=== PATIENT | female | born 1955 | race Caucasian/White ===

== ENCOUNTER 2018-08-02 16:32 | Inpatient (IN) | payer OTHER ==
[2018-08-02 17:46] LABS: PLATELET COUNT 296 10^3/uL (150-400)
[2018-08-04] MEDS ORDERED: TRANEXAMIC ACID 1,000 MG in NS 100 ML IV ONE (08:29)
[2018-08-04] MEDS ORDERED: PROPOFOL/EMULSION 500 MG/50 ML BOTTLE IV ONE (09:16)
[2018-08-04] MEDS ORDERED: THROMBIN (BOVINE) 20,000 UNIT VIAL TP ONE (09:19)
[2018-08-04] MEDS ORDERED: BUPIVACAINE 0.25% 30 ML SDV ONE (09:19)
[2018-08-04] MEDS ORDERED: EPINEPHrine 1 MG/ML INJ ONE (09:19)
[2018-08-04] MEDS ORDERED: CHLORHEXIDINE GLUC HIBICLENS 118 ML BTL TP ONE (09:19)
[2018-08-04] MEDS ORDERED: BACITRACIN 50,000 UNITS/10 ML SYR IRR ONE (09:20)
[2018-08-04] MEDS ORDERED: ACETAMINOPHEN 500 MG TAB PO ONE (09:25)
[2018-08-04] MEDS ORDERED: morphINE SR 15 MG TAB PO ONE (09:25)
[2018-08-04] MEDS ORDERED: morphINE PF 0.2 MG in SYRINGE INTRATHECAL 1 SYR IT ONE (09:25)
[2018-08-04] MEDS ORDERED: GABAPENTIN 300 MG CAP PO ONE (09:25)
[2018-08-04] MEDS ORDERED: ceFAZolin 2 GM/DEXTROSE 100 ML IV ONE (09:25)
[2018-08-04] MEDS ORDERED: ROCURONIUM 50 MG/5 ML VIAL ONE (09:31)
[2018-08-04] MEDS ORDERED: LIDOCAINE 2% 5 ML SDV ONE ×2 (09:31→12:01)
--- NOTE | 2018-08-04 09:40 | PDHPUP ---
History & Physical Update H&P update statement: This history and physical update is based on an assessment of the patient which was completed after admission or registration (within 24 hours), but prior to the surgery/procedure. H&P update: H&P reviewed & patient examined, no change in patient's condition since H&P completed (Consents signed and site marked. All questions answered.)
[2018-08-04] MEDS ORDERED: LR 1,000 ML IV ONE (10:10)
[2018-08-04] MEDS ORDERED: DEXMEDETOMIDINE HCL 200 MCG/2 ML VIAL IV ONE (10:15)
[2018-08-04] MEDS ORDERED: MIDAZOLAM 2 MG/2 ML VIAL ONE (10:16)
[2018-08-04] MEDS ORDERED: fentaNYL 100 MCG/2 ML INJ ONE ×2 (10:21→15:04)
[2018-08-04] MEDS ORDERED: PROPOFOL 200 MG/20 ML VIAL ONE (10:22)
[2018-08-04] MEDS ORDERED: ALBUTEROL 60 PUFFS/8 GM MDI IH PRN (10:33)
[2018-08-04] MEDS ORDERED: LACTULOSE 20 GM/30 ML UDCUP PO PRN (10:41)
[2018-08-04] MEDS ORDERED: POLYETHYLENE GLYCOL 3350 17 GM PKT PO PRN (10:41)
[2018-08-04] MEDS ORDERED: ONDANSETRON DISINTEGRATING 4 MG TAB PO PRN (10:41)
[2018-08-04] MEDS ORDERED: ONDANSETRON 4 MG/2 ML VIAL IVP PRN ×3 (10:41→14:22)
[2018-08-04] MEDS ORDERED: MAGNESIUM HYDROXIDE 30 ML UDCUP PO PRN (10:41)
[2018-08-04] MEDS ORDERED: BISACODYL 10 MG SUPP PR PRN (10:41)
[2018-08-04] MEDS ORDERED: NS 1,000 ML IV SCH (10:45)
[2018-08-04] MEDS ORDERED: KETAMINE 200 MG/20 ML VIAL ONE (11:07)
--- NOTE | 2018-08-04 11:08 | PDANEPAE ---
ANE Past Medical History - Cardiovascular History Hx Hypertension: Yes Hx Arrhythmias: No Hx Chest Pain: No Hx Coronary Artery / Peripheral Vascular Disease: Yes Hx CHF / Valvular Disease: No Hx Palpitations: No Cardiovascular History Comment: CAD. STENT PLACED 2013. WELLNESS PROGRAM ADMINISTRATOR . MURMUR - Pulmonary History Hx COPD: No Hx Asthma/Reactive Airway Disease: Yes Hx Recent Upper Respiratory Infection: No Hx Oxygen in Use at Home: No Hx Sleep Apnea: Yes Sleep Apnea Screening Result - Last Documented: Positive Pulmonary History Comment: KATRINA USES MOUTHPIECE - Neurologic History Hx Cerebrovascular Accident: No Hx Seizures: No Hx Dementia: No - Endocrine History Hx Diabetes: No Endocrine History Comment: hypothyroidism. hashimotos - Renal History Hx Renal Disorders: No - Liver History Hx Hepatic Disorders: No - Neurological & Psychiatric Hx Hx Neurological and Psychiatric Disorders: Yes Neurological / Psychiatric History Comment: anxiety. depression. recent loss of a loved one - Cancer History Hx Cancer: No - Congenital Disorder History Hx Congenital Disorders: No - GI History Hx Gastrointestinal Disorders: Yes Gastrointestinal History Comment: hx of reflux- diet controlled currently - Other Health History Other Health History: 2 MISSING TEETH. gluten causes rashes. wears glasses. chronic pain pt - Chronic Pain History Chronic Pain: Yes (back, neck spine) - Surgical History Prior Surgeries: RT CATARACT. LUMBAR FUSION L4-6 2009. CERVICAL FUSION X2 2013 &2010. ABLATIONS LUMBAR/SIVAN. TONSILLECTOMY. RT BUNIONECTOMY WITH POST REMVL HARDWARE. RT CARPAL TUNNEL RELEASE ANE Review of Systems Review of Systems: - Exercise capacity METS (RN): 3 METS ANE Patient History - Allergies Allergies/Adverse Reactions: adhesive tape Allergy (Verified 08/04/18 09:34) itch and break out gluten Allergy (Verified 08/04/18 09:34) - Home Medications Home Medications: Albuterol [Proventil Inhaler HFA (*)] 1 - 2 puffs IH Q4H PRN 07/27/17 [Last Taken 08/03/18] Amphet Asp and D/Amphet [Adderall 10 MG (*)] 10 mg PO BID@09,16 07/27/17 [Last Taken 08/03/18] Aspirin [Aspirin 325 mg (*)] 325 mg PO HS 07/27/17 [Last Taken 08/01/18] Fluticasone/Salmeter 500/50Mcg [Advair 500/50 (*)] 1 puffs IH BID 07/27/17 [ Last Taken 08/03/18] Furosemide [Lasix 20 MG (*)] 10 mg PO DAILY 07/27/17 [Last Taken 08/03/18] Levothyroxine [Synthroid 112 mcg (*)] 112 mcg PO DAILY06 07/27/17 [Last Taken 06:00] Liothyronine Sodium [Cytomel 5 mcg (*)] 5 mcg PO DAILY 07/27/17 [Last Taken 06:00] Lisinopril [Zestril 10 mg (*)] 10 mg PO DAILY 07/27/17 [Last Taken 08/03/18 06: 00] MILNACIPRAN HCL [Savella 100 mg] 100 mg PO BID 07/27/17 [Last Taken 08/03/18 16: 00] Montelukast Sodium [Singulair 10 mg (*)] 10 mg PO DAILY@1600 07/27/17 [Last Taken 08/03/18] Temazepam [Restoril] 30 mg PO HS 07/27/17 [Last Taken 08/03/18 19:15] amLODIPine BESYLATE [Norvasc 5 mg (*)] 5 mg PO DAILY 07/27/17 [Last Taken 06:00] traZODone [traZODone 150MG (*)] 300 mg PO HS 07/27/17 [Last Taken 08/03/18 19:15 ] Docusate Sodium [Colace 100 MG (*)] 200 mg PO HS 07/20/18 [Last Taken 08/03/18] Herbals/Supplements -Info Only 1 ea PO DAILY 07/20/18 [Last Taken 08/01/18] Multivitamins [Multivitamin (*)] 1 each PO DAILY 07/20/18 [Last Taken 08/01/18] - NPO status NPO Since - Liquids (Date): 08/04/18 NPO Since - Liquids (Time): 07:00 NPO Since - Solids (Date): 08/03/18 NPO Since - Solids (Time): 19:00 - Smoking Hx Smoking Status: Former smoker - Family Anes Hx Family Hx Anesthesia Complications: none ANE Labs/Vital Signs - Labs Result Diagrams: 08/02/18 17:14 08/02/18 17:14 - Vital Signs Blood Pressure: 122/79 Heart Rate: 79 Respiratory Rate: 16 O2 Sat (%): 94 Height: 167.64 cm Weight: 75.75 kg ANE Physical Exam - Airway Neck exam: FROM Mallampati Score: Class 1 Mouth exam: normal dental/mouth exam - Pulmonary Pulmonary: no respiratory distress, no rales or rhonchi, clear to auscultation - Cardiovascular Cardiovascular: regular rate and rhythym, no murmur, rub, or gallop - ASA Status ASA Status: III ANE Anesthesia Plan Anesthesia Plan: general endotracheal anesthesia
[2018-08-04] MEDS ORDERED: MAGNESIUM SULFATE 1 GM/2 ML VIAL ONE (11:15)
[2018-08-04] MEDS ORDERED: DIAZEPAM 5 MG/ML 1 ML SYR ONE ×2 (11:16→14:25)
[2018-08-04] MEDS ORDERED: DEXAMETHASONE 4 MG/ML VIAL IVP PRN ×2 (11:31→14:22)
[2018-08-04] MEDS ORDERED: LR 500 ML IV PRN ×2 (11:31→14:22)
[2018-08-04] MEDS ORDERED: DIAZEPAM 5 MG/ML 1 ML SYR IVP PRN ×2 (11:31→14:22)
[2018-08-04] MEDS ORDERED: NALOXONE HCL 0.4 MG/ML INJ IVP PRN ×2 (11:31→14:22)
[2018-08-04] MEDS ORDERED: fentaNYL 100 MCG/2 ML INJ IVP PRN ×2 (11:31→14:22)
[2018-08-04] MEDS ORDERED: ePHEDrine SULFATE 25 MG/5 ML SYR ONE (12:01)
[2018-08-04] MEDS ORDERED: PHENYLEPHRINE HCL 100 MCG/ML SYR ONE (12:01)
[2018-08-04] MEDS ORDERED: HYDROmorphONE/DILAUDID 2 MG/ML INJ ONE (13:51)
[2018-08-04] MEDS: HYDROmorphONE/DILAUDID 2 MG/ML INJ IVP PRN ×2 (13:53→14:03)
[2018-08-04] MEDS ORDERED: ceFAZolin 2 GM/DEXTROSE 100 ML IV SCH (14:00)
--- NOTE | 2018-08-04 14:00 | POSTOPPROG ---
Post Op Note Date of Operation: 08/04/18 Surgeon: Ron Morgan Flatwork Presser: VICTORIANO Boyle PAC Anesthesia: GET(General Endotracheal) Pre-op Diagnosis: Lumbar stenosis Post-op Diagnosis: Lumbar stenosis Indication: Lumbar stenosis Procedure: hardware exploration and removal, L2/3 TLIF with L2-L4 PSF Inf/Abcess present in the surg proc area at time of surgery?: No EBL: 50-100 Drains: Chapin ANGLIN Addendum - Addendum .: S: low back discomfort, denies any new leg pain O: NAD A&OX3 MAEx4 5/ incision c/d/i A/P 63y/o female s/p hardware exploration and removal, L2/3 TLIF with L2-L4 PSF -Optimize pain management -PT/OT -NEDRA drain x1 -Post op xrays pending -DVT prophx: TEDs, SCDs, Lovenox okay POD1 -Please notify NS with any change in neuro/motor exam
--- NOTE | 2018-08-04 14:30 | POSTANESTH ---
Post Anesthetic Evaluation Cardiovascular Status: Normal, Stable, Similar to Pre-Op Cond Respiratory Status: Normal, Stable, Similar to Pre-op Cond. Level of Consciousness/Mental Status: Mildly Sleepy, Arousable Pain Control: Adequate, Prn Tx Ordered Nausea/Vomiting Control: Adequate, Prn Tx Ordered Complications Possibly Related to Anesthesia: None Noted
--- NOTE | 2018-08-04 14:34 | GOP ---
[f rep st] OPERATIVE REPORT DATE OF OPERATION: 08/04/2018 SURGEON: Ron Morgan MD [place] ORD[facility]ARY: Britta Boyle PA-C. ANESTHESIA: General. PREOPERATIVE DIAGNOSIS: 1. Adjacent level stenosis L2, L3 with history of prior lumbar fusion L3 through L5. 2. Lower extremity radiculopathy. 3. Lower extremity weakness. 4. Low back pain. 5. Treatment refractory to nonoperative intervention. POSTOPERATIVE DIAGNOSIS: 1. Adjacent level stenosis L2, L3 with history of prior lumbar fusion L3 through L5. 2. Lower extremity radiculopathy. 3. Lower extremity weakness. 4. Low back pain. 5. Treatment refractory to nonoperative intervention. PROCEDURE PERFORMED: 1. Posterior arthrodesis with approach to L2, L3, L4, and L5. 2. Exploration of lumbar hardware L3 through L5 with subsequent removal of segmental hardware from the Alphatec system. 3. Posterolateral fusion with bilateral pedicle screw placement L2, L3, and L4 from Yandex Solera 4.75 system. 4. Decompressive laminectomy L2, L3 with left-sided aggressive facetectomy and transforaminal lumbar interbody fusion with a 7 x 26 mm titanium coated PEEK cage filled with morselized autograft and allograft. 5. Posterolateral fusion on the right between L2 and L3 with morselized autograft and allograft. 6. Use of intraoperative 3D Stealth navigation. 7. Use of intraoperative fluoroscopy, less than 1 hour physician time. 8. Use of neuromonitoring. 9. Use of the operating microscope. 10. Injection of preservative-free intrathecal narcotics. FINDINGS: per imaging SPECIMENS: None. ESTIMATED BLOOD LOSS: 150 mL. INDICATIONS: The patient is a very pleasant 63-year-old woman who presented to our office with low back pain and worsening lower extremity radiculopathy. She had evidence of severe adjacent level breakdown at L2-L3 with a history of prior fusion at L3 through L5. After discussion of risks, benefits, and alternatives, and after failing nonoperative intervention, we decided to proceed forth with the surgery as described above. DESCRIPTION OF PROCEDURE: Patient was brought to the operating theater and underwent general endotracheal anesthesia without complications. She had Venodynes, SUSY hose, and the appropriate lines placed by Anesthesia. She was flipped prone onto the Chapin table and all bony prominences inspected and padded. The previous lumbar incision was identified and marked more cranially. This area was prepped and draped in usual sterile surgical fashion. A time- out was completed per protocol, and the patient received antibiotics within 1 hour of incision. The incision was infiltrated with Marcaine with epinephrine. The incision was taken down with a scalpel blade, and using monopolar, taken down in midline through the lumbodorsal fascia and a subperiosteal dissection was carried out at L2. We then traveled out laterally at the L3, L4, and L5 levels to avoid the previous midline laminectomy defect. We identified the prior hardware at L3 , L4, and L5. She had a large amount of bony growth over the hardware and the crosslink. We removed the bone, tissue, and removed the cap screws from L3 through L5, as well as bilateral rods, as well as the crosslink. We explored this hardware using the distractor, and she had no motion on further exploration. We replaced the bilateral L3 and L4 screws with 6.5 x 40 mm screws bilaterally in L3 and L4 from Medtronic Solera 4.75 system. We attached our 3D Stealth navigation clamp to the spinous process of L2 and completed a 3D Stealth navigation spin. Using 3D Stealth navigation, we placed the airplane pilot chief holes for the bilateral pedicle screws in L2. The holes were manually palpated with no evidence of any cortical breaches. We then tapped and placed 6.5 x 50 mm screws bilaterally in L2, also from the Medtronic Solera 4.75 system. Another 3D Stealth navigation spin demonstrated good placement of the hardware. At this point, the microscope was brought into field to assist with microscopic dissection to maintain illumination and magnification. Using a combination of bur tip on the drill bit, Kerrison punches, and Leksell rongeur, we completed a decompressive laminectomy with a left-sided aggressive facetectomy L2-L3. We distracted the interspace on the left side and completed a left-sided L2-3 diskectomy. We prepared the cartilaginous endplates and measured the interbody space. We placed a 7 x 26 mm titanium coated PEEK cage filled with morselized autograft and allograft anteriorly and towards the midline. We packed additional morcellized autograft into the disk space for interbody fusion. We let down the distraction and decorticated the bone on the right side between L2 and L3. We placed 2 lordotic rods into the heads of the screws between L2 and L4 and secured them down with cap screws which were then tightened per financial aid officer's setting. We irrigated the wound copiously with bacitracin irrigation. We placed morselized autograft and allograft in the right side between L2-3 for posterolateral fusion. We injected preservative-free intrathecal narcotics and left a drain in the subfascial space. The wound was then closed in multiple layers including Vicryl sutures in the deep layers and Dermabond for the skin. The patient's wounds were dressed sterilely. She was then awakened, extubated, and taken to the recovery room in stable condition. There were no complications and no noted changes on neuromonitoring throughout the procedure. COMPLICATIONS: None. /[id number]/MODL MTDD
--- NOTE | 2018-08-04 14:38 | PDMN ---
Medical Necessity Medical necessity: MCG: S820 lumbar fusion: 2 days [facility] INPT only OP: hardware exploration and removal, L2/3 TLIF with L2-L4 PSF PER [facility] [id number] APPROVED FOR INPT
[2018-08-04] MEDS: ACETAMINOPHEN 500 MG TAB PO SCH ×2 (15:15→21:44)
[2018-08-04] MEDS: ADDERALL 10 MG TAB PO SCH (16:21)
[2018-08-04] MEDS: ceFAZolin 2 GM/DEXTROSE 100 ML IV SCH (17:08)
[2018-08-04] MEDS: MONTELUKAST SODIUM 10 MG TAB PO SCH (17:08)
[2018-08-04] MEDS: oxyCODONE IR 5 MG TAB PO PRN ×3 (17:08→21:45)
[2018-08-04] MEDS: METHOCARBAMOL 750 MG TAB PO PRN (18:27)
[2018-08-04] MEDS: DOCUSATE SODIUM 100 MG CAP PO SCH (21:44)
[2018-08-04] MEDS: SENNOSIDES/DOCUSATE SODIUM TAB PO SCH (21:46)
[2018-08-04] MEDS: TEMAZEPAM 15 MG CAP PO SCH (21:46)
[2018-08-04] MEDS: FAMOTIDINE 20 MG TAB PO SCH (21:46)
[2018-08-04] MEDS: FLUTICASONE/SALMETER 500/50MCG DISKUS IH SCH (23:20)
[2018-08-05] MEDS: diphenhydrAMINE 25 MG CAP PO PRN ×3 (00:48→08:22)
[2018-08-05] MEDS: ceFAZolin 2 GM/DEXTROSE 100 ML IV SCH (00:49)
[2018-08-05] MEDS: Milnacipran Hcl [Savella 100 Mg] PO SCH ×3 (01:03→21:09)
[2018-08-05] MEDS: METHOCARBAMOL 750 MG TAB PO PRN ×2 (04:33→20:05)
[2018-08-05] MEDS: oxyCODONE IR 5 MG TAB PO PRN ×4 (04:33→20:05)
[2018-08-05] MEDS: ACETAMINOPHEN 500 MG TAB PO SCH ×3 (06:23→21:45)
[2018-08-05] MEDS: LEVOTHYROXINE 112 MCG TAB PO SCH (06:23)
--- NOTE | 2018-08-05 07:28 | NEUSURGPN ---
Date of Surgery: 08/04/18 Post Op Day: 1 Assessment/Plan: 63y/o female s/p hardware exploration and removal, L2/3 TLIF with L2-L4 PSF -Optimize pain management -PT/OT -NEDRA drain x1 (310 output since surgery) -Wear brace when out of bed -Post op xrays pending -DVT prophx: TEDs, SCDs, Lovenox okay POD1 -Please notify NS with any change in neuro/motor exam Discussed with Dr. Morgan. Subjective: Itchy all over. No lower extremity pain, numbness, tingling. Objective: Awake. Alert. PERRL. EOMI Speech fluent Muscle strength full at 5/5 Catheter Insertion Date: 08/04/18 - Physician Discussed Patient with : Cathy Neurosurgery Physical Exam - Vitals, I&O, Labs I and O 08/04/18 08/05/18 08/06/18 05:59 05:59 05:59 Intake Total 5505 Output Total 3810 Balance 1695 Weight 75.75 kg Intake: Oral (ml) 3100 IV Intake (ml) 2100 IV Infused (ml) 305 ceFAZolin 2 GM/DEXTROSE 305 100 ml @ 200 mls/hr IV Q8H PIOT[facility] Rx#:[id number] Output: Urine (ml) 3300 Catheter 3300 Estimated Blood Loss (ml) 200 NEDRA Drain Output (ml) 310 #1 Posterior Back Chapin 310 Woody Other: Intake Quantity Yes Sufficient Vital Signs Temp Pulse Resp BP Pulse Ox 36.9 C 75 13 94/56 L 98 08/05/18 03:22 08/05/18 03:22 08/05/18 03:22 08/05/18 03:22 08/05/18 03:22 Laboratory Results 08/02/18 17:14 08/02/18 17:14 ICD10 Worksheet Patient Problems: Problems Problem Status Onset Lumbar spondylosis Acute - ICD10 Problem Qualifiers (1) Lumbar spondylosis
[2018-08-05] MEDS: FAMOTIDINE 20 MG TAB PO SCH ×2 (08:21→19:58)
[2018-08-05] MEDS: ENOXAPARIN 40 MG/0.4 ML SYR SC SCH (08:21)
[2018-08-05] MEDS: ADDERALL 10 MG TAB PO SCH ×2 (08:21→16:46)
[2018-08-05] MEDS: FUROSEMIDE 20 MG TAB PO SCH (08:22)
[2018-08-05] MEDS: LIOTHYRONINE SODIUM 5 MCG TAB PO SCH (08:22)
[2018-08-05] MEDS: LISINOPRIL 10 MG TAB PO SCH (08:26)
[2018-08-05] MEDS: amLODIPine BESYLATE 5 MG TAB PO SCH (08:26)
[2018-08-05] MEDS: FLUTICASONE/SALMETER 500/50MCG DISKUS IH SCH ×2 (08:27→21:03)
[2018-08-05] MEDS: SENNOSIDES/DOCUSATE SODIUM TAB PO SCH ×2 (08:28→19:58)
[2018-08-05] MEDS: MULTIVITAMINS 1 EACH TAB PO SCH (08:28)
[2018-08-05] MEDS ORDERED: Herbals/Supplements -Info Only PO SCH (09:00)
[2018-08-05] MEDS ORDERED: hydrOXYzine HCL 25 MG TAB PO PRN (11:21)
--- NOTE | 2018-08-05 14:46 | ASMTCMCOM ---
CM Note CM Note Notes: Reviewed chart for discharge planning purposes. Met with patient who states she would like home health care. Patient has all necessary DME needed for discharge. She has requested a referral for [facility]. Referral sent, spoke with Kendell, they are able to accept and open this weekend. All d/c orders need to be sent to the [facility] location. CM will follow. Plan: [facility] PT/OT Date Signed: 08/05/2018 02:45 PM Electronically Signed By:Mandie Jones RN
[2018-08-05] MEDS: MONTELUKAST SODIUM 10 MG TAB PO SCH (16:46)
[2018-08-05] MEDS: DOCUSATE SODIUM 100 MG CAP PO SCH (19:58)
[2018-08-05] MEDS: TEMAZEPAM 15 MG CAP PO SCH (21:09)
[2018-08-06] MEDS: ACETAMINOPHEN 500 MG TAB PO SCH ×3 (05:37→21:29)
[2018-08-06] MEDS: LEVOTHYROXINE 112 MCG TAB PO SCH (05:41)
[2018-08-06] MEDS: oxyCODONE IR 5 MG TAB PO PRN ×2 (05:41→09:43)
[2018-08-06] MEDS: ADDERALL 10 MG TAB PO SCH ×2 (09:29→15:29)
[2018-08-06] MEDS: amLODIPine BESYLATE 5 MG TAB PO SCH (09:29)
[2018-08-06] MEDS: ENOXAPARIN 40 MG/0.4 ML SYR SC SCH (09:30)
[2018-08-06] MEDS: FAMOTIDINE 20 MG TAB PO SCH ×2 (09:30→21:29)
[2018-08-06] MEDS: FUROSEMIDE 20 MG TAB PO SCH (09:31)
[2018-08-06] MEDS: LIOTHYRONINE SODIUM 5 MCG TAB PO SCH (09:32)
[2018-08-06] MEDS: MULTIVITAMINS 1 EACH TAB PO SCH (09:32)
[2018-08-06] MEDS: SENNOSIDES/DOCUSATE SODIUM TAB PO SCH ×2 (09:33→21:29)
[2018-08-06] MEDS: Milnacipran Hcl [Savella 100 Mg] PO SCH ×2 (09:35→21:29)
[2018-08-06] MEDS: FLUTICASONE/SALMETER 500/50MCG DISKUS IH SCH ×2 (09:36→21:35)
[2018-08-06] MEDS: METHOCARBAMOL 750 MG TAB PO PRN ×3 (09:43→23:51)
--- NOTE | 2018-08-06 09:47 | NEUSURGPN ---
Date of Surgery: 08/04/18 Post Op Day: 2 Assessment/Plan: Assessment: 63 y/o female s/p hardware exploration and removal, L2/3 TLIF with L2-L4 PSF POD #2 Plan: -Optimize pain management-doing well with current pain meds -PT/OT-CPM -NEDRA drain x1 (100+ in last 24 hrs) -will keep NEDRA and pull tomorrow -Wear brace when out of bed-tolerating well with no skin issues -Post op xrays look good and without complications -DVT prophx: TEDs, SCDs, Lovenox okay POD1 -Please notify NS with any change in neuro/motor exam -pt understands and agrees -discussed with Dr. Morgan Subjective: Awake and alert. NAD. Eating/drinking and voiding. No f/c/n/v/d. No yepez/neck/ chest/abd or gu complaints. Objective: AAO x 3, PERRLA/EOMI no droop CN 2-12 grossly intact +lt touch 5/5 BUE/BLE = CDI NEDRA in place Neuro Check Frequency: per routine Urinary Catheter in Place: No Catheter Insertion Date: 08/04/18 - Physician Discussed Patient with : Cathy Neurosurgery Physical Exam - Vitals, I&O, Labs I and O 08/05/18 08/06/18 08/07/18 05:59 05:59 05:59 Intake Total 5505 1250 500 Output Total 3810 430 900 Balance 1695 820 -400 Weight 75.75 kg Intake: Oral (ml) 3100 1250 500 IV Intake (ml) 2100 IV Infused (ml) 305 ceFAZolin 2 GM/DEXTROSE 305 100 ml @ 200 mls/hr IV Q8H [facility] Rx#:[id number] Output: Urine (ml) 3300 350 900 Catheter 3300 Toilet 350 900 Estimated Blood Loss (ml) 200 NEDRA Drain Output (ml) 310 80 #1 Posterior Back Chapin 310 80 Woody Other: Intake Quantity Yes Yes Sufficient Number of Voids Toilet 1 1 Vital Signs Temp Pulse Resp BP Pulse Ox 37.0 C 94 16 87/58 L 96 08/06/18 08:00 08/06/18 08:00 08/06/18 08:00 08/06/18 08:00 08/06/18 08:00 Laboratory Results 08/02/18 17:14 08/02/18 17:14 ICD10 Worksheet Patient Problems: Problems Problem Status Onset Lumbar spondylosis Acute
[2018-08-06] MEDS: LISINOPRIL 10 MG TAB PO SCH (10:07)
[2018-08-06] MEDS: MONTELUKAST SODIUM 10 MG TAB PO SCH (15:30)
[2018-08-06] MEDS: DOCUSATE SODIUM 100 MG CAP PO SCH (21:29)
[2018-08-06] MEDS: TEMAZEPAM 15 MG CAP PO SCH (21:35)
[2018-08-07] MEDS: ACETAMINOPHEN 500 MG TAB PO SCH (05:42)
[2018-08-07] MEDS: LEVOTHYROXINE 112 MCG TAB PO SCH (05:42)
[2018-08-07] MEDS ORDERED: LIOTHYRONINE SODIUM 5 MCG TAB PO SCH (06:00)
[2018-08-07 08:25] VITALS: BP 112/75
--- NOTE | 2018-08-07 08:35 | NEUSURGPN ---
Date of Surgery: 08/04/18 Post Op Day: 3 Assessment/Plan: Assessment: 63 y/o female s/p hardware exploration and removal, L2/3 TLIF with L2-L4 PSF POD #3 Plan: -Optimize pain management-doing well with current pain meds -pt wants to dc home -PT/OT-CPM -NEDRA drain-ordered for removal today -plan for dc later today -Wear brace when out of bed-tolerating well with no skin issues -Post op xrays look good and without complications -DVT prophx: TEDs, SCDs, Lovenox okay POD1 -Please notify NS with any change in neuro/motor exam -pt understands and agrees -discussed with Dr. Morgan Subjective: Awake and alert. NAD. Eating/drinking and voiding. No f/c/n/v/d. Objective: AAO x 3, PERRLA/EOMI no droop CN 2-12 grossly intact +lt touch 5/5 BUE/BLE = CDI NEDRA in place to be removed today Neuro Check Frequency: per routine Urinary Catheter in Place: No Catheter Insertion Date: 08/04/18 - Physician Discussed Patient with : Cathy Neurosurgery Physical Exam - Vitals, I&O, Labs I and O 08/06/18 08/07/18 08/08/18 05:59 05:59 05:59 Intake Total 1250 1700 Output Total 430 1590 Balance 820 110 Intake: Oral (ml) 1250 1700 Output: Urine (ml) 350 1550 Toilet 350 1550 NEDRA Drain Output (ml) 80 40 #1 Posterior Back Chapin 80 40 Woody Other: Intake Quantity Yes Yes Sufficient Number of Voids Toilet 1 1 1 Number of Stools Toilet 1 Vital Signs Temp Pulse Resp BP Pulse Ox 36.9 C 77 14 112/75 97 08/07/18 08:00 08/07/18 08:00 08/07/18 08:00 08/07/18 08:00 08/07/18 08:00 Laboratory Results 08/02/18 17:14 08/02/18 17:14 ICD10 Worksheet Patient Problems: Problems Problem Status Onset Lumbar spondylosis Acute
--- NOTE | 2018-08-07 09:08 | PDIAF ---
- Diagnosis Diagnosis: s/p L spine fusion Code Status: Full Code - Medication Management Blender Helper Antibiotics: none Discharge Medications: electronically signed and located in the Home Medication List. PICC Care - Routine: N/A - Orders Services needed: Home Care, Registered Nurse, Physical Therapy, Occupational Therapy Home Care Face to Face: I certify that this patient was under my care and that I had the required [id number] encounter meeting the encounter requirements on the discharge day. My findings support the fact that the patient is homebound as defined in Home Care Face to Face Continued: CMS Chapter 7 Medicare Benefits Manual 30.1.1 , The condition of the patient is such that there exists a normal inability to leave home and consequently, leaving home would require a considerable and taxing effort. Oxygen: to keep O2 sat above 90% Diet Recommendation: no restrictions on diet Diet Texture: Regular Texture Diet Tube feeding: n/a Haro: Not applicable Additional Instructions: -ok to resume ASA POD #7 -call with any questions or concerns -take medications as directed -wear brace as directed -no bending or twisting -no lifting more than 10-15 - Follow Up Care Current Providers and Referrals: Shayna Casanova MD [Primary Care Provider] - Ron Morgan MD [Medical Doctor] - (follow up in 2-3 weeks)
[2018-08-07] MEDS: FLUTICASONE/SALMETER 500/50MCG DISKUS IH SCH (10:09)
[2018-08-07] MEDS: amLODIPine BESYLATE 5 MG TAB PO SCH (10:19)
[2018-08-07] MEDS: FUROSEMIDE 20 MG TAB PO SCH (10:20)
[2018-08-07] MEDS: FAMOTIDINE 20 MG TAB PO SCH (10:20)
[2018-08-07] MEDS: MULTIVITAMINS 1 EACH TAB PO SCH (10:20)
[2018-08-07] MEDS: SENNOSIDES/DOCUSATE SODIUM TAB PO SCH (10:21)
[2018-08-07] MEDS: ADDERALL 10 MG TAB PO SCH (10:22)
[2018-08-07] MEDS: ENOXAPARIN 40 MG/0.4 ML SYR SC SCH (10:22)
[2018-08-07] MEDS: LISINOPRIL 10 MG TAB PO SCH (10:23)
[2018-08-07] MEDS: Milnacipran Hcl [Savella 100 Mg] PO SCH (10:23)
--- NOTE | 2018-08-07 12:01 | ASMTLACE ---
RASE Length of stay for Answers: 4-6 days current admission Acuity / Level of Answers: Yes Care: Did the patient have an inpatient admission? Comorbidities - select Answers: Coronary Artery Disease all that apply Opioid dependence / Chronic pain Other Notes: HTN; Hypothyroid # of Emergency department Answers: 0 visits in the last 6 months Social determinants Answers: Mental health diagnosis (anxiety, depression, pers onality disorders, etc.) Score: 17 Date Signed: 08/07/2018 12:00 PM Electronically Signed By:BECCA Chion
--- NOTE | 2018-08-07 12:02 | ASMTCMCOM ---
CM Note CM Note Notes: Pt medically stable for d/c with [facility] PT/OT, orders sent in Allscripts. call person nurse updated orders sent, they have pt scheduled for SOC tomorrow. Date Signed: 08/07/2018 12:01 PM Electronically Signed By:BECCA Chino
[2018-08-07] MEDS: METHOCARBAMOL 750 MG TAB PO PRN (12:38)
--- NOTE | 2018-08-07 15:08 | ASDISCHSUM ---
Discharge Information Plan Status:Home with Home Health Medically Cleared to Leave: Discharge Date:08/07/2018 01:14 PM CM D/C Disposition: ADT D/C Disposition:Home Health Service Projected Discharge Date:08/06/2018 11:00 AM Transportation at D/C: Discharge Delay Reason: Follow-Up Date:08/06/2018 11:00 AM Discharge Slot: Final Diagnosis: Placement Information Referral Type:*Home Health Care Services Referral ID:[id number] Provider Name:[facility] Address 1:[address] Phone Number: Address 2: Fax Number: City:[place] Selection Factors: State:[place] Patient Contact Information Contact Name:CLIVE Relationship: Address: Work Phone: City: [facility] Phone: [facility] Code: Email: Financial Information Financial Class:Medicare Advantage Plans Primary Plan Desc:[facility] Probiodrug Primary Plan Number:[id number] Secondary Plan Desc: Secondary Plan Number: Assessment Information LACE LACE Length of stay for Answers: 4-6 days current admission Acuity / Level of Answers: Yes Care: Did the patient have an inpatient admission? Comorbidities - select Answers: Coronary Artery Disease all that apply Opioid dependence / Chronic pain Other Notes: HTN; Hypothyroid # of Emergency department Answers: 0 visits in the last 6 months Social determinants Answers: Mental health diagnosis (anxiety, depression, pers onality disorders, etc.) Score: 17 Date Signed: 08/07/2018 12:00 PM Electronically Signed By:BECCA Chino [facility] Progress Note CM Terry NUGENT Note Notes: Reviewed chart for discharge planning purposes. Met with patient who states she would like home health care. Patient has all necessary DME needed for discharge. She has requested a referral for [facility]. Referral sent, spoke with Kendell, they are able to accept and open this weekend. All d/c orders need to be sent to the [facility] location. CM will follow. Plan: [facility] PT/OT Date Signed: 08/05/2018 02:45 PM Electronically Signed By:Mandie Jones RN [facility] CM Progress Note CM Note CM Note Notes: Pt medically stable for d/c with [facility] PT/OT, orders sent in Allscripts. on call nurse updated orders sent, they have pt scheduled for SOC tomorrow. Date Signed: 08/07/2018 12:01 PM Electronically Signed By:BECCA Chino Intervention Information Intervention Type:*IM-Signed Date of Service:08/05/2018 02:39 PM Patient Type:Inpatient Staff Member:Bianka Garcia Hours: Discipline: Severity: Comment:
--- NOTE | 2018-08-16 20:16 | GDS ---
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 Lower extremity weakness, lower extremity radiculopathy, and low back pain. 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 Lower extremity weakness, lower extremity radiculopathy, and low back pain. PROCEDURES: On 08/04/2018, exploration of prior lumbar fusion from L3 to L5 with removal of hardware , with posterior fusion from L2 to L4 with a decompressive laminectomy at L2-3 and a left-sided L2-3 translumbar interbody fusion with cage placement. HOSPITAL COURSE AND MAJOR MEDICAL FINDINGS: The patient is a 63-year-old female, who presented to Dr Rhonda Morgan's outpatient clinic with low back pain and worsening extremity radiculopathy. Based on this , the risks, benefits, and alternatives to proceeding with the above-named procedure were thoroughly discussed. The patient was taken to the operating room on 08/04/2017, for the above-named procedure. For full operative details, please see Dr. Morgan's operative note in the EMR system. The patient was extubated in the operating room and transferred to the PACU. Once awake and alert in the PACU, s he was transferred to the floor. While on the floor, she worked with [facility]. Her diet was advanced, and her pain management was optimized. She underwent postoperative x-ray s, which demonstrated intact hardware without any evidence of failure. She had a NEDRA drain placed int raoperatively that was removed before discharge without complication. The patient was deemed fit for discharge to home with [facility] on 08/07/2018. DISCHARGE MEDICATIONS: Please see the patient's full medical record for a full list of medications. She was given prescriptions for methocarbamol and oxycodone. DISCHARGE INSTRUCTIONS: 1. The patient is instructed that she may not to lift anything greater than 5 to 10 pounds. She is to avoid all bending, twisting, or lifting anything greater than 5 to 10 pounds. 2. The patient is to wear her LSO whenever she is up and out of bed. 3. The patient is instructed she is not to drive while taking narcotic pain medication. 4. If the patient develops a fever greater than 100.5 or any redness, swelling, discharge, or pain t hat is not relieved by her pain medication, she is encouraged to give the [facility] a call. 5. If the patient develops any life-threatening emergent conditions, such as chest pain, signs or sy mptoms of stroke, or gross motor loss in her bilateral upper or bilateral lower extremities, she is e ncouraged to go to her local emergency room. FOLLOWUP CARE: 1. The patient is to follow up with Dr. Morgan or one of his PA's in approximately 2 to 3 weeks. If she has any questions or concerns prior to that time, she is encouraged to give our office a call. 2. The patient is to follow up with her primary care doctor regarding her chronic medical conditions . Copy requested to: Shayna VangPRIMARY CARE PHYS MD Edilberto /[id number]
== END 2018-08-07 13:14 | disposition home health service (06) | DRG 455 ==
LOC: UNDOADMIN 16:32 → F3N 16:32
PROVIDERS: ADMIT Neurological Surgery; ATTEND Neurological Surgery
DX: M48.061 Spinal stenosis, lumbar region without neurogenic claudication (principal); M51.16 Intervertebral disc disorders with radiculopathy, lumbar region; Z98.1 Arthrodesis status; I10 Essential (primary) hypertension; I25.10 Atherosclerotic heart disease of native coronary artery without angina pectoris; G47.33 Obstructive sleep apnea (adult) (pediatric); E03.9 Hypothyroidism, unspecified; E06.3 Autoimmune thyroiditis; F32.9 Major depressive disorder, single episode, unspecified; F41.9 Anxiety disorder, unspecified; Z87.891 Personal history of nicotine dependence; Z95.5 Presence of coronary angioplasty implant and graft
CPT/HCPCS: 97116-GP; 97161-GP; 97166-GO; 97530-GP; 97535-GO; C1713; J0171; J0690; J1170; J1200; J1650; J2250; J2270; J2274; J2370; J2704; J3010; J3360; J3475